=== PATIENT | female | born 1985 | race Caucasian/White ===

== ENCOUNTER → 2019-05-27 07:27 | Outpatient (CLI) | payer BC, SELFPAY ==
--- NOTE | ~2019-05-27 | US_ITS ---
EXAMINATION: US OB >= 14 weeks Fetus EXAM DATE: 05/27/2019 08:23 INDICATION: For anatomy and dates. Second trimester. TECHNIQUE: Pelvic obstetrical transabdominal sonogram was performed by a technologist. There are mu ltiple grayscale and Doppler images available for interpretation. There are no earlier studies of th is gestation for comparison. FINDINGS: There is a single fetus identified in vertex presentation with a heart rate of 151 beats pe r minute. The placenta is located in the posterior position. There is no sonographic evidence of ret roplacental hemorrhage identified. The amniotic fluid index is 13.1 centimeters, which is normal. Jessi cental margin to internal cervical os distance is 3.5 cm. BIOMETRIC DATA: Biparietal diameter (BPD): 4.5cm ----------------> 19 weeks 4 days. Head circumference (HC): 16.1 cm ----------------> 18 weeks 6 days. Abdominal circumference (AC): 14.4 cm ----------> 18 weeks 5 days. Femur length (FL): 3.0 cm --------------------------> 19 weeks 2 days. These measurements are concordant. HC/AC ratio is 1.12 (The 5th -- 95th percentile range is 1.08-1.26. Estimated weight is 293 g +/- 44 g. This is the 80th percentile when the currently reported cl inical gestation age 18 weeks 6 days, clinical estimated date of delivery (KALIN-OPE) 10/21 is used. Feta l estimated gestational age based on measurements from this exam is 19 weeks 3 days, with an estimate d date of delivery (KALIN-AUA) 10/17. ANATOMIC SURVEY: The following anatomy is identified and is sonographically normal in appearance: Cerebral ventricles Cerebellum Cisterna magna Nuchal fold CTL-spine Four-chamber heart Diaphragm Stomach Kidneys Bladder Three-vessel cord Cord insertion IMPRESSION: 1. Single fetus in vertex presentation with heart rate 151 beats per minute. 2. Estimated weight of 293 grams, 80th percentile using the currently reported clinical gestat ion age of 18 weeks 6 days, KALIN(OPE) 10/22/2019. 3. Normal anatomic survey. Reviewed, dictated and finalized at location B. ICE STATION OPERATOR IMPRESSION: 1. Single fetus in vertex presentation with heart rate 151 beats per minute. 2. Estimated weight of 293 grams, 80th percentile using the currently re ported clinical gestation age of 18 weeks 6 days, KALIN(OPE) 10/22/2019. 3. Normal anatomic survey.
== END ==
PROVIDERS: Visit Provider Obstetrics & Gynecology Gynecology
DX: Z36.9 Encounter for antenatal screening, unspecified (principal); Z3A.18 18 weeks gestation of pregnancy
CPT/HCPCS: 76805

== ENCOUNTER 2019-10-19 05:47 | Inpatient (IN) | payer BC, SELFPAY ==
[2019-10-19] VITALS (10 sets, daily range): BP systolic 113–128; BP diastolic 70–98; PULSE 68–83; RESP 18; TEMP 36.6–37.3; O2SAT 99; BMI 35.2
[2019-10-19 06:24] LABS: Basophils Percent Auto 0.3 % (0.2-1.2); Eosinophils Absolute Auto 0.1 K/mm3 (0-0.3); Eosinophils Percent Auto 0.6 % (0-4.4); Hematocrit 39.4 % (37.0-47.0); Hemoglobin 13.3 g/dL (12.0-15.0); Immature Granulocyte Absolute 0.04 K/mm3 (0.00-0.031); Immature Granulocyte Percent A 0.4 % (0-0.5); Lymphocytes Absolute Auto 2.37 K/mm3 (0.9-3.2); Lymphocytes Percent Auto 22.8 % (18.3-44.2); Mean Corpuscular HGB Conc 33.8 g/dl (32-36); Mean Corpuscular Hemoglobin 28.2 pg (26-34); Mean Corpuscular Volume 83.5 fl (80-100); Mean Platelet Volume 9.7 fl (7.4-10.4); Monocytes Absolute Auto 0.8 K/mm3 (0.1-0.6); Monocytes Percent Auto 7.8 % (2.6-8.5); Neutrophils Absolute Auto 7.1 K/mm3 (1.3-6.7); Neutrophils Percent Auto 68.1 % (45.5-73.1); Platelet Count Result 153 k/mm3 (150-375); Red Blood Count 4.72 M/mm3 (4.2-5.4); Red Cell Distribution Width 13.6 % (11.5-14.5); White Blood Count 10.4 K/mm3 (4.5-10.0)
[2019-10-19] MEDS: LACTATED RINGERS 1,000 ML 125 ML IV CONT (06:32)
[2019-10-19] MEDS: OXYTOCIN 30 UNITS/NS 500 ML 30 UNITS/500 ML BAG 999 UNITS IV CONT (06:33)
--- NOTE | 2019-10-19 06:54 | WPDOBADMIT ---
Obstetrics - Admit Note Admission Note: Precipitous delivery meconium. record reviewed. No pertinent additions to the history and/or any subsequent changes in the physical findings that are not consistent with the expected course of the were found. Additions to the history and/or subsequent changes in the physical findings follow. None.
--- NOTE | 2019-10-19 06:54 | PM.OBPRVD ---
OB - Delivery Note Procedure Delivery date: 10/19/19 Procedure: events: No Care Intrapartal events: None Induction method: none Delivery monitor: none Route of delivery: Laceration description: Vaginal - 2nd Degree Delivery repair: vicryl Specimen: No Estimated blood loss (mL): 100 Anesthesia type: Local Disposition: floor [place] Baby Date of : 10/19/19 Time of : 06:15 Weeks of gestation at delivery: 39 Infant gender: Female Weight (pounds): 7 Weight (ounces): 7 presentation: vertex score one minute: 8 score five minutes: 9
[2019-10-19] MEDS: OXYTOCIN 30 UNITS/NS 500 ML 30 UNITS/500 ML BAG 125 UNITS IV CONT (07:13)
[2019-10-19] MEDS: IBUPROFEN 600 MG TABLET PO ×3 (07:56→23:49)
--- NOTE | 2019-10-19 08:06 | LDADM ---
This patient, Kerrie Meléndez, was admitted to Labor/Delivery/Recovery 105 on 10/19/19 at 05:47. Plans for labor, pain management and were discussed with patient. Patient/family oriented to hospital policies and general routines including ID bracelet, bed and alarms, visiting hours, pain management, procedures, bathroom and other care routines, personal items, smoking policy, room service/diet and guest tray routines, infant security routines, and visiting hours. Patient/Family are encouraged to report perceived risks to care and to ask questions if they do not understand what they are told or what they should do. See OBIX for further documentation.
[2019-10-19] MEDS: WITCH HAZEL 40 PADS 1 PAD TOPICAL (09:27)
[2019-10-19] MEDS: BENZOCAINE 20% AER SPR (*SP) 56 GM CAN 1 SPRAY TOPICAL (09:28)
[2019-10-19 09:41] LABS: Rapid Plasma Reagin Non-Reactive (NonReactive)
--- NOTE | 2019-10-19 12:09 | PC.NURSE ---
0976 Pt admitted to second floor room 279 per wheelchair from labor and delivery after spontaneous vaginal delivery of viable female infant at [address] Aranda. Mother is a and is choosing to breast feed baby. /FOB present. Couple oriented to room, staffing and procedures; admission folder reviewed. Pt denies hx of PPD; Pt's VSS and assessment WNL.
[2019-10-19] MEDS: DOCUSATE SODIUM 100 MG CAPSULE PO (15:50)
[2019-10-19] MEDS: MULTIVIT/MIN/PREN/FOL AC/IRON TABLET 1 TAB PO (15:50)
[2019-10-19] MEDS: LANOLIN (LANSINOH) 7.5 GM CREAM 1 APPLIC TOPICAL (15:51)
[2019-10-20 05:42] LABS: Hematocrit 31.5 % (37.0-47.0); Hemoglobin 10.4 g/dL (12.0-15.0)
[2019-10-20 07:30] VITALS: BP 116/79; PULSE 75; RESP 18; TEMP 37.1
--- NOTE | 2019-10-20 07:33 | PM.OBPNVD ---
OB - PN: Subj Subjective Date/time seen: 10/20/19 07:33 Patient comments: no complaints and pain well controlled baby status: doing well and nursing well OB - PN: Obj Data Labs CBC & Chem 7: 10/20/19 04:48 Labs: Laboratory Results - last 24 hr 10/19/19 10/20/19 06:09 04:48 Hgb 10.4 L Hct 31.5 L RPR Non-reactive OB - PN A/P Plan day: 1 Plan: routine care, discharge home (possible dc this afternoon. ) and other (Plans micronor) Time Spent With Patient Time: Total time spent is greater than 50% in coordination of care (as documented) at patient's floor/unit and/or counseling patient: Exam : Bimanual exam- vagina & uterus: other (Uterus firm, nt @U)
[2019-10-20] MEDS: MULTIVIT/MIN/PREN/FOL AC/IRON TABLET 1 TAB PO (08:07)
[2019-10-20] MEDS: IBUPROFEN 600 MG TABLET PO (08:07)
--- NOTE | 2019-10-20 08:50 | PC.NURSE ---
Consult with pt., mother has to breast upon entering. Mother is able to independently latch with appropriate positioning/alignment. nursed eagerly, with steady draws and frequent swallowing noted. Reviewed signs of a correct latch, effective nursing and suck swallow ratio. was able to maintain latch without discomfort to mother. Nipple care reviewed. Mother reports this is 4th child to breastfeed, she had no issues with others. Reviewed infant feeding cues, frequencies, duration of feedings, feeding elimination flow sheet, and signs of adequate intake. Mother is feeding as required and waking to feed if needed. Infant has had at least 8 effective feedings in the past 24 hours, and is currently meeting outcomes for weight, output, jaundice and feeding frequencies. Mother states she feels confident to continue effective at home. Reviewed transition to breast milk, signs of adequate intake, and engorgement/relief. Instructed to call ICP if intake/output less than required. Reviewed regular medications mother is taking. Information provided per Jael. Reviewed community resources on the [facility] website and in the Mom/Baby guide. Information on outpatient services provided. Mother has no further questions at this time.
[2019-10-23 11:20] VITALS: BP 118/88; PULSE 80; RESP 20; TEMP 37.1; O2SAT 100
--- NOTE | 2019-10-27 12:57 | PM.OBDSVD ---
DS: Admitting Diagnosis Admitting Diagnosis Admitting Diagnosis: Encounter for supervision of normal , unspecified, third trimester OB - DS: Summary OB Procedures : None OB Procedures Intrapartum: Spontaneous Vag Delivery OB Procedures: : None Peripartum Data Infant Delivery Method: Natural Vaginal Laceration description: Vaginal - 2nd Degree complications: none Time Spent with Patient Time attestation: Total time spent providing and/or coordinating discharge services: Discharge Plan Discharge Discharging Clinician: Helena Aranda Patient Disposition: Home, Self-Care Activity: as tolerated Diet: regular Discharge Instructions: Education: Mom and Baby Guide Given to: Mother Follow-Up: Call your delivering provider's office for an appointment to be seen. Mom and baby should come to the [facility] for the follow-up appointment. Appointment Date/Time: October 23, 2019 at 11:00 am What to expect at your follow-up visit: Physical Assessment Call [phone] if you are unable to keep your appointment time. BREAST CARE: 1. Wear a snug supportive bra. 2. For engorgement discomfort: Breast Feeding: A. Apply warm moist washcloths B. Express milk as needed to relieve engorgement C. Wear loose clothing 3. For sore nipples: A. Identify correct latch-on B. Apply warm moist washcloths before and after nursing C. Air dry nipples after nursing D. May apply Lansinoh cream to nipples PERINEAL CARE: 1. Until bleeding stops, use your alicia bottle after urinating 2. Change your pad frequently throughout the day 3. You may take sitz baths several times a day (fill your bathtub with warm water and soak for 20 minutes.) Do NOT bathe in the water 4. No tub baths until seen by your physician - You may shower ACTIVITY: 1. Rest as much as possible. 2. Do not exercise or lift anything heavier than your baby (such as laundry or other children.) 3. Avoid stairs or driving as much as possible. 4. Do not put anything into the vagina. No douching, tampons, or sexual activity until seen by physician. NOTIFY PHYSICIAN IF YOU HAVE ANY QUESTIONS OR IF ANY OF THE FOLLOWING SYMPTOMS OCCUR: 1. If your stitches become red, swollen, or more painful than what you have experienced in the hospital. 2. If your vaginal bleeding becomes foul smelling. 3. If your vaginal bleeding becomes more heavy than a period or if your bleeding changes from pink to bright red. However, you may pass an occasional walnut-sized clot once or twice for the first week . 4. If you experience a sharp, shooting pain in you calves. 5. If you discover a hard, reddened area on your breast or if you experience flu-like symptoms. DIET: 1. Eat regular, well-balanced meals. 2. Drink plenty of fluids daily. If , drink to thirst. Stand Alone Forms: General Discharge Information Follow-up/Referrals: Helena Aranda MD [Physician] - Call for Appointment Discharge Medications: Continued valacyclovir [Valtrex] 500 mg Tablet 500 mg PO DAILY RF: 0 ergocalciferol (vitamin D2) [Vitamin D2] 1,250 mcg (50,000 unit) Capsule 1,250 mcg PO WEEKLY RF: 0 Discontinued PNV cmb#[id number]-ferrous fumarate-FA [] 28 mg iron- 800 mcg Tablet 1 tablet PO DAILY RF: 0 Date of admission: 10/19/19 05:47 Primary Care Provider: PHYSICIAN,BOWLING BALL PATCHER Admitting Provider: Quentin Rojo Discharge Date/Time: 10/20/19 13:55 Attending physician on admission: Helena Aranda
== END 2019-10-20 13:55 | disposition home or self-care (01) | DRG 806 ==
LOC: ANHLDR 06:09 → ANHOB2 10:03
PROVIDERS: Admitting Provider Obstetrics & Gynecology; Visit Provider Obstetrics & Gynecology Gynecology
DX: O62.3 Precipitate labor (principal); O98.52 Other viral diseases complicating childbirth; Z37.0 Single live birth; Z3A.39 39 weeks gestation of pregnancy; O70.1 Second degree perineal laceration during delivery; O77.0 Labor and delivery complicated by meconium in amniotic fluid; B00.9 Herpesviral infection, unspecified
CPT/HCPCS: 36415; 85014; 85018; 85025; 86592; 86850; 86900; 86901; A9270; J2590; J7120

== ENCOUNTER → 2020-04-25 14:52 | Outpatient (CLI) | payer BC, SELFPAY ==
--- NOTE | ~2020-04-25 | US_ITS ---
EXAMINATION: US axilla RT INDICATION: Palpable mass of the right axilla TECHNIQUE: Ultrasound of the right axilla was performed. COMPARISON: None available FINDINGS: There is an 11 mm x 7 mm oval, circumscribed, hypoechoic mass with posterior acoustic enhan cement and internal vascularity in the right axilla in the area of palpable concern 15 cm from the ni pple. An 8 mm x 5 mm mass with similar sonographic features is present 14 cm from the nipple. IMPRESSION: 1. Right axillary masses corresponding to the palpable abnormalities which likely reflect lymph nodes but with abnormal morphology. Ultrasound-guided biopsy is recommended. BI-RADS category 4, suspicious findings. Reviewed, dictated and finalized at location A. ACTOR PULLER IMPRESSION: 1. Right axillary masses corresponding to the palpable abnormalities which like ly reflect lymph nodes but with abnormal morphology. Ultrasound-guided biopsy i s recommended. BI-RADS category 4, suspicious findings.
== END ==
PROVIDERS: Visit Provider Nurse Practitioner
DX: N63.10 Unspecified lump in the right breast, unspecified quadrant (principal); R92.8 Other abnormal and inconclusive findings on diagnostic imaging of breast
CPT/HCPCS: 76882

== ENCOUNTER → 2021-10-27 12:01 | Outpatient (CLI) | payer BC, SELFPAY ==
--- NOTE | ~2021-10-27 | XR_ITS ---
EXAMINATION: XR lumbar spine 2-3V DATE: 10/27/2021 13:32 INDICATION: Lumbago. Left-sided sciatica. TECHNIQUE: 3 views of lumbar spine were obtained. COMPARISON: None. FINDINGS: Bone alignment is normal. Vertebral body heights are normal. There is mildly decreased disc height at L4-L5 and L5-S1. The facet joints are unremarkable. IMPRESSION: 1. Mild lower lumbar spondylosis. Reviewed, dictated and finalized at location A.
== END ==
PROVIDERS: PCP Physician Assistant; Visit Provider Physician Assistant
DX: M54.42 Lumbago with sciatica, left side (principal); M47.896 Other spondylosis, lumbar region
CPT/HCPCS: 72100